=== PATIENT | female | born 1945 | race Caucasian/White ===

== ENCOUNTER 2020-08-26 05:03 | Inpatient (IN) ==
[2020-08-26] MEDS ORDERED: Acetaminophen 325 MG TABLET PO PRN (10:54)
[2020-08-26] MEDS ORDERED: Naloxone 0.4 MG/ML INJ IVP PRN (10:54)
[2020-08-26] MEDS ORDERED: Morphine Sulfate Immed Rel 15 MG TABLET PO PRN (10:58)
[2020-08-26] MEDS: Ondansetron 4 MG/2 ML VIAL IVP PRN ×2 (11:47→23:27)
[2020-08-26] MEDS: Morphine Sulfate Oral CONC 10 MG/0.5 ML ORAL.SYG PO PRN ×3 (11:48→21:16)
[2020-08-26] MEDS: Morphine Sulfate 2 MG/ML SYRINGE IVP PRN ×3 (12:17→22:16)
[2020-08-26] MEDS: *HR* Heparin 5,000 UNIT/ML VIAL SQ SCH (16:42)
[2020-08-26] MEDS: Nicotine 7 MG PATCH.TD24 TD SCH (19:43)
[2020-08-26] MEDS ORDERED: *HR* OxyCODONE/APAP 7.5/325 TABLET PO PRN (21:28)
[2020-08-26] MEDS ORDERED: tiZANidine 4 MG TABLET PO PRN (21:28)
[2020-08-27 00:25] LABS: Influenza A PCR Negative (Negative); Influenza B PCR Negative (Negative); Resp. Syncytial Virus PCR Negative (Negative)
[2020-08-27 00:26] LABS: SARS-CoV-2 by PCR (In House) Negative (Negative)
[2020-08-27] MEDS: Morphine Sulfate Oral CONC 10 MG/0.5 ML ORAL.SYG PO PRN ×2 (01:44→06:07)
[2020-08-27] MEDS: Morphine Sulfate 2 MG/ML SYRINGE IVP PRN ×4 (03:42→16:43)
[2020-08-27 04:04] LABS: Basophils # 0.1 K/mcL (0.0-0.2); Basophils % 0.9 %; Eosinophils # 0.2 K/mcL (0.0-0.6); Eosinophils % 2.4 %; Hematocrit 38.5 % (35.3-44.9); Hemoglobin 12.5 g/dL (11.5-15.4); Immature Granulocytes % 0.3 % (0-4); Immature Platelets 1.9 % (1.1-6.1); Lymphocytes # 0.9 K/mcL (0.6-4.6); Lymphocytes % 13.5 %; Mean Corpuscular HGB Conc 32.5 g/dL (31.6-35.5); Mean Corpuscular Volume 98.5 fL (83.0-100.0); Mean Platelet Volume 9.3 fL (9.4-12.4); Monocytes # 0.5 K/mcL (0.0-1.3); Monocytes % 7.7 %; Neutrophils # 5.1 K/mcL (1.6-8.9); Platelet Count 126 K/mcL (140-400); Red Blood Count 3.91 M/mcL (3.82-4.97); Red Cell Distribution Width 11.8 % (11.5-14.5); Segmented Neutrophils % 75.2 %; White Blood Count 6.8 K/mcL (4.3-11.1)
[2020-08-27 04:16] LABS: BUN/Creatinine Ratio 17 (6-26); Blood Urea Nitrogen 12 mg/dL (8-23); Carbon Dioxide 28 mEq/L (23-29); Chloride 101 mEq/L (98-107); Glucose 106 mg/dL (70-105); Osmolality,Calculated 282 (280-300); Phosphorous 3.6 mg/dL (2.7-4.5); Potassium 3.7 mEq/L (3.5-5.1); Sodium 136 mEq/L (136-145); eGFR For African Americans > 60 (> 60); eGFR For Non-African Americans > 60 (> 60)
[2020-08-27] MEDS ORDERED: 0.9 % Sodium Chloride 1,000 ML IV SCH (04:45)
[2020-08-27] MEDS: *HR* Heparin 5,000 UNIT/ML VIAL SQ SCH (06:07)
[2020-08-27] MEDS: Nicotine 7 MG PATCH.TD24 TD SCH (10:36)
[2020-08-27] MEDS ORDERED: polyethylene glycoL 3350 17 GM POWD.PACK PO PRN ×2 (11:35→17:23)
[2020-08-27] MEDS ORDERED: Ethanol\\Acetic Acid\\Na Ace\\Ben 1,000 ML IRRIG.SOLN IR ONE (14:17)
[2020-08-27] MEDS ORDERED: Vancomycin 1,000 MG VIAL ONE (14:17)
[2020-08-27] MEDS ORDERED: ceFAZolin 2,000 MG in Water for inj. (sterile) 20 ML IVP ONE (14:23)
[2020-08-27] MEDS ORDERED: Famotidine 20 MG/2 ML VIAL ONE (14:40)
[2020-08-27] MEDS ORDERED: Acetaminophen IV 1,000 MG/100 ML BAG IVPB ONE (14:40)
[2020-08-27] MEDS ORDERED: Povidone-Iodine 45 ML, Sodium Chloride IRRigation 1,000 ML IR ONE (14:45)
[2020-08-27] MEDS ORDERED: Gabapentin 400 MG CAPSULE PO SCH (15:00)
[2020-08-27] MEDS ORDERED: Lidocaine -MPF 2% 2 ML VIAL ONE (15:10)
[2020-08-27] MEDS ORDERED: Dexamethasone 4 MG/ML VIAL ONE (15:10)
[2020-08-27] MEDS ORDERED: *HR* FentaNYL (PF) 100 MCG/2 ML VIAL ONE ×2 (15:10→15:38)
[2020-08-27] MEDS ORDERED: Tranexamic Acid 1,000 MG/10 ML VIAL ONE (15:10)
[2020-08-27] MEDS ORDERED: Ondansetron 4 MG/2 ML VIAL ONE (15:10)
[2020-08-27] MEDS ORDERED: *HR* Propofol 200 MG/20 ML VIAL IVP ONE (15:10)
[2020-08-27] MEDS ORDERED: *HR* Succinylcholine 200 MG/10 ML VIAL IVP ONE (15:20)
[2020-08-27] MEDS ORDERED: Ondansetron 4 MG/2 ML VIAL IVP PRN (16:02)
[2020-08-27] MEDS ORDERED: Promethazine 6.25 MG in Water for inj. (sterile) 20 ML IVPB PRN (16:02)
[2020-08-27 16:49] LABS: Hematocrit 38.3 % (35.3-44.9)
[2020-08-27] MEDS ORDERED: HYDROcodone BIT/Homatropine 5 MG TABLET PO PRN (17:23)
[2020-08-27] MEDS ORDERED: MOM Conc 10 ML UD.LIQ PO PRN (17:23)
[2020-08-27] MEDS ORDERED: *HR* Promethazine 25 MG/ML VIAL IM PRN (17:23)
[2020-08-27] MEDS ORDERED: Sennosides 8.6 MG TABLET PO PRN (17:23)
[2020-08-27] MEDS ORDERED: Naloxone 0.4 MG/ML INJ IVP PRN (17:23)
[2020-08-27] MEDS ORDERED: tiZANidine 4 MG TABLET PO PRN (17:23)
[2020-08-27] MEDS: Ascorbic Acid 500 MG TABLET PO SCH (18:13)
[2020-08-27] MEDS: *HR* OxyCODONE Immed Rel 5 MG TABLET PO PRN (18:14)
[2020-08-27] MEDS: Ringers Solution, Lactated 1,000 ML IVC SCH (20:45)
[2020-08-27] MEDS: Gabapentin 400 MG CAPSULE PO SCH (20:55)
[2020-08-27] MEDS: *HR* LORazepam 0.5 MG TABLET PO PRN (20:58)
[2020-08-27] MEDS: CeFAZolin 2 GM/120 ML BAG IVPB SCH (22:20)
[2020-08-28 06:14] LABS: Basophils % 0.1 %; Eosinophils % 0.3 %; Hematocrit 32.9 % (35.3-44.9); Immature Granulocytes % 0.7 % (0-4); Lymphocytes # 0.9 K/mcL (0.6-4.6); Lymphocytes % 12.4 %; Mean Corpuscular HGB Conc 31.3 g/dL (31.6-35.5); Mean Corpuscular Hemoglobin 30.7 pg (28.0-33.3); Mean Corpuscular Volume 98.2 fL (83.0-100.0); Mean Platelet Volume 9.6 fL (9.4-12.4); Monocytes # 0.7 K/mcL (0.0-1.3); Monocytes % 9.7 %; Neutrophils # 5.5 K/mcL (1.6-8.9); Platelet Count 126 K/mcL (140-400); Red Blood Count 3.35 M/mcL (3.82-4.97); Red Cell Distribution Width 11.6 % (11.5-14.5); Segmented Neutrophils % 76.8 %; White Blood Count 7.2 K/mcL (4.3-11.1)
[2020-08-28 06:17] LABS: Hemoglobin 10.3 g/dL (11.5-15.4)
[2020-08-28 06:37] LABS: BUN/Creatinine Ratio 22 (6-26); Blood Urea Nitrogen 17 mg/dL (8-23); Calcium 8.6 mg/dL (8.6-10.3); Carbon Dioxide 28 mEq/L (23-29); Chloride 100 mEq/L (98-107); Glucose 111 mg/dL (70-105); Osmolality,Calculated 284 (280-300); Potassium 4.2 mEq/L (3.5-5.1); Sodium 136 mEq/L (136-145); eGFR For African Americans > 60 (> 60); eGFR For Non-African Americans > 60 (> 60)
[2020-08-28] MEDS: Multivit/Ca/Min/Fe/FA 1 TAB TABLET PO SCH (07:45)
[2020-08-28] MEDS: Ascorbic Acid 500 MG TABLET PO SCH ×2 (07:45→16:03)
[2020-08-28] MEDS: Gabapentin 400 MG CAPSULE PO SCH ×3 (07:45→21:38)
[2020-08-28] MEDS: CeFAZolin 2 GM/120 ML BAG IVPB SCH (07:46)
[2020-08-28] MEDS: Nicotine 7 MG PATCH.TD24 TD SCH (07:51)
[2020-08-28] MEDS: lisinopriL 10 MG TABLET PO SCH (07:51)
[2020-08-28] MEDS: *HR* OxyCODONE Immed Rel 5 MG TABLET PO PRN ×3 (07:52→22:09)
[2020-08-28] MEDS: Sennosides/Docusate Sodium TABLET PO SCH (07:55)
[2020-08-28] MEDS ORDERED: Sennosides/Docusate Sodium TABLET PO SCH (09:00)
[2020-08-28] MEDS ORDERED: lisinopriL 10 MG TABLET PO SCH (09:00)
[2020-08-28] MEDS: Aspirin Enteric Coated 81 MG Tablet PO SCH (14:01)
[2020-08-28] MEDS ORDERED: Iron Sucrose Complex 250 MG in 0.9 % Sodium Chloride 250 ML IVPB SCH (19:00)
[2020-08-28] MEDS: *HR* LORazepam 0.5 MG TABLET PO PRN (22:10)
[2020-08-29 01:08] LABS: Basophils % 0.4 %; Eosinophils # 0.2 K/mcL (0.0-0.6); Eosinophils % 2.4 %; Hematocrit 32.6 % (35.3-44.9); Hemoglobin 10.6 g/dL (11.5-15.4); Immature Granulocytes % 0.7 % (0-4); Lymphocytes # 1.2 K/mcL (0.6-4.6); Lymphocytes % 14.3 %; Mean Corpuscular HGB Conc 32.5 g/dL (31.6-35.5); Mean Corpuscular Hemoglobin 31.7 pg (28.0-33.3); Mean Corpuscular Volume 97.6 fL (83.0-100.0); Mean Platelet Volume 9.9 fL (9.4-12.4); Monocytes # 0.7 K/mcL (0.0-1.3); Monocytes % 8.4 %; Neutrophils # 6.2 K/mcL (1.6-8.9); Platelet Count 151 K/mcL (140-400); Red Blood Count 3.34 M/mcL (3.82-4.97); Red Cell Distribution Width 11.6 % (11.5-14.5); Segmented Neutrophils % 73.8 %; White Blood Count 8.3 K/mcL (4.3-11.1)
[2020-08-29 01:24] LABS: BUN/Creatinine Ratio 28 (6-26); Blood Urea Nitrogen 19 mg/dL (8-23); Calcium 8.5 mg/dL (8.6-10.3); Carbon Dioxide 28 mEq/L (23-29); Chloride 99 mEq/L (98-107); Glucose 109 mg/dL (70-105); Osmolality,Calculated 283 (280-300); Potassium 3.4 mEq/L (3.5-5.1); Sodium 135 mEq/L (136-145); eGFR For African Americans > 60 (> 60); eGFR For Non-African Americans > 60 (> 60)
[2020-08-29] MEDS: Ondansetron 4 MG/2 ML VIAL IVP PRN ×2 (04:50→12:07)
[2020-08-29] MEDS: Ringers Solution, Lactated 1,000 ML IVC SCH ×2 (08:53→08:55)
[2020-08-29] MEDS: 0.9 % Sodium Chloride 1,000 ML IV SCH ×2 (08:54→08:55)
[2020-08-29] MEDS: Aspirin Enteric Coated 81 MG Tablet PO SCH (09:12)
[2020-08-29] MEDS: Sennosides/Docusate Sodium TABLET PO SCH (09:12)
[2020-08-29] MEDS: Gabapentin 400 MG CAPSULE PO SCH ×3 (09:13→23:31)
[2020-08-29] MEDS: Ascorbic Acid 500 MG TABLET PO SCH ×2 (09:13→19:29)
[2020-08-29] MEDS: Multivit/Ca/Min/Fe/FA 1 TAB TABLET PO SCH (09:13)
[2020-08-29] MEDS: lisinopriL 10 MG TABLET PO SCH (09:14)
[2020-08-29] MEDS: Nicotine 7 MG PATCH.TD24 TD SCH (09:14)
[2020-08-29] MEDS: *HR* LORazepam 0.5 MG TABLET PO PRN ×2 (12:06→21:07)
[2020-08-29 13:18] LABS: Influenza A PCR Negative (Negative); Influenza B PCR Negative (Negative); Resp. Syncytial Virus PCR Negative (Negative)
[2020-08-29 13:19] LABS: SARS-CoV-2 by PCR (In House) Negative (Negative)
[2020-08-29] MEDS: Acetaminophen 325 MG TABLET PO SCH (19:43)
[2020-08-30] MEDS ORDERED: Ondansetron ODT 4 MG TAB.RAPDIS SL PRN (02:16)
[2020-08-30] MEDS: Acetaminophen 325 MG TABLET PO SCH (02:36)
[2020-08-30] MEDS: *HR* OxyCODONE/APAP 7.5/325 TABLET PO PRN ×2 (02:37→08:38)
[2020-08-30] MEDS: lisinopriL 10 MG TABLET PO SCH (08:35)
[2020-08-30] MEDS: Sennosides/Docusate Sodium TABLET PO SCH (08:35)
[2020-08-30] MEDS: Multivit/Ca/Min/Fe/FA 1 TAB TABLET PO SCH (08:35)
[2020-08-30] MEDS: Nicotine 7 MG PATCH.TD24 TD SCH (08:36)
[2020-08-30] MEDS: Aspirin Enteric Coated 81 MG Tablet PO SCH (08:36)
[2020-08-30] MEDS: Gabapentin 400 MG CAPSULE PO SCH (08:36)
[2020-08-30] MEDS: *HR* LORazepam 0.5 MG TABLET PO PRN (08:39)
[2020-08-30 11:10] VITALS: BP 92/53
== END 2020-08-30 13:30 | DRG 522 ==
LOC: 3NENU → SUATTDRO 10:54
PROVIDERS: ADMIT Internal Medicine; ATTEND Pharmacist